=== PATIENT | female | born 1980 | race Caucasian/White ===

== ENCOUNTER 2022-04-07 08:45 | Outpatient (RCR) | payer OTHER ==
[~2022-04-07 08:45] MED LIST: CEFTIN500 MG PO; DIFLUCAN200 MG PO; PRENATAL1 TA7 PO; PYRIDIUM 100MG100 MG PO; PYRIDIUM200 M1 PO
== END 2022-04-08 | disposition home or self-care (01) ==
LOC: PT.GENESIS
DX: M25.561 Pain in right knee (principal); Z98.890 Other specified postprocedural states

== ENCOUNTER 2022-05-02 13:45 | Outpatient (RCR) | payer OTHER | END 2022-05-06 | disposition home or self-care (01) | LOC: PT.GENESIS | DX: M25.561 Pain in right knee (principal); Z98.890 Other specified postprocedural states ==

== ENCOUNTER 2022-06-03 08:30 | Outpatient (RCR) | payer OTHER | END 2022-06-06 | disposition home or self-care (01) | LOC: PT.GENESIS | DX: M25.561 Pain in right knee (principal); Z98.890 Other specified postprocedural states ==

== ENCOUNTER → 2022-06-09 | Outpatient (CLI) | payer OTHER | LOC: MC.RAD 14:43 | DX: Z12.31 Encounter for screening mammogram for malignant neoplasm of breast (principal) ==

== ENCOUNTER 2022-07-02 08:30 | Outpatient (RCR) | payer OTHER | END 2022-07-06 | disposition home or self-care (01) | LOC: PT.GENESIS | DX: Z98.890 Other specified postprocedural states (principal) | CPT/HCPCS: G0283-GP ==